=== PATIENT | female | born 2000 | race Caucasian/White ===

== ENCOUNTER 2019-05-20 09:55 | Observation (INO) | payer BC ==
[2019-05-20 10:34] VITALS: BMI 28.1
[2019-05-20 12:04] LABS: Absolute Lymphocytes (CBC) 1.7 K/uL (0.7-4.9); Basophils % 0.7 % (0-1.3); Lymphocytes % 21.5 % (15.3-44.8); MPV 8.9 fL (7.6-11.3); RBC Red Blood Cell Count 5.23 M/uL (3.86-4.86)
[2019-05-20 12:29] LABS: ALT/SGPT 37 U/L (12-78); AST/SGOT 23 U/L (15-37); Albumin 3.7 g/dL (3.4-5.0); Alkaline Phosphatase 76 U/L (45-117); BUN Blood Urea Nitrogen 9 mg/dL (7-18); Bicarbonate 26 mmol/L (21-32); Bilirubin Total 0.3 mg/dL (0.2-1.0); Glucose Level 87 mg/dL (74-106); Potassium 3.7 mmol/L (3.5-5.1); Protein, Total 8.2 g/dL (6.4-8.2); Sodium Level 140 mmol/L (136-145)
--- NOTE | 2019-05-20 13:07 | P.HP ---
Certification for Inpatient Patient admitted to: Observation With expected LOS: <2 Midnights Patient will require the following post-hospital care: None Practitioner: I am a practitioner with admitting privileges, knowledge of patient current condition, hospital course, and medical plan of care. Services: Services provided to patient in accordance with Admission requirements found in Title 42 Section 412.3 of the Code of Federal Regulations Patient History Date of Service: 05/20/19 Primary Care Provider: Zoe Redding Reason for admission: sleeping pill overdose History of Present Illness: Patient is a pleasant young woman with a pmh of depression and allergies. She has been started on fluoxetine and is on 40mg. She has been having increased depression recently. The patient took the day off. She started taking sleeping pills, otc diclocamine or unisom. She eventually took 10pill 25mg each. Within the space of an hour. She became scared and called her . Who called our office and we decided to direct admit her to the hospital and have her seen by psychiatry. The patient has a history of attempts when she was 13. She did use pills. Her mother also has a similar history. The patient denies wanting to commit suicide. She simply wanted to sleep. She states this was not an active attempt. Perhaps an unintentional overdose. Allergies Penicillins Allergy (Severe, Verified 05/20/19 10:47) Hives, SOB Home Medications: Doxylamine Succinate [Unisom Sleep Aid] 25 mg PO BEDTIME 05/20/19 Fluoxetine HCl [Prozac] 40 mg PO DAILY 05/20/19 - Past Medical/Surgical History Has patient received pneumonia vaccine in the past: Yes Diabetic: No -: depreesion -: anxiety -: mitral valve prolapse - Family History Mother History Unknown: Yes -: Heart disease, Cancer - Social History Smoking Status: Former smoker Alcohol use: No CD- Drugs: No Caffeine use: Yes Place of Residence: Home Review of Systems 10-point ROS is otherwise unremarkable General: Other (depression) Physical Examination - Vital Signs Blood Pressure: 123/84 Pulse: 78 Respirations: 11 Pulse Ox (%): 100 - Physical Exam General: Alert, In no apparent distress HEENT: Atraumatic, PERRLA, Mucous membr. moist/pink, EOMI, Sclerae nonicteric Neck: Supple, 2+ carotid pulse no bruit, No LAD, Without JVD or thyroid abnormality Respiratory: Clear to auscultation bilaterally, Normal air movement Cardiovascular: Regular rate/rhythm, Normal S1 S2 Gastrointestinal: Normal bowel sounds, No tenderness Musculoskeletal: No tenderness Integumentary: No rashes Neurological: Normal gait, Normal speech, Normal strength at 5/5 x4 extr, Normal tone, Normal affect Lymphatics: No axilla or inguinal lymphadenopathy - Studies Laboratory Data (last 24 hrs) 05/20/19 11:46: Sodium 140, Potassium 3.7, BUN 9, Creatinine 0.68, Glucose 87, Total Bilirubin 0.3, AST 23, ALT 37, Alkaline Phosphatase 76 05/20/19 11:46: WBC 7.9, Hgb 14.6, Hct 44.0, Plt Count 274 Assessment and Plan - Problems (Diagnosis) (1) Overdose Current Visit: Yes Status: Acute Plan: Patient is in the icu. Our excellent nurse has consulted poison control. As recomended will do serial ekg to monitor qt interval. Will put her on neurochecks and seizure precautions. The t1/2 is 10hrs. Will keep her 24-48 hours Qualifiers: Encounter type: initial encounter (2) Depression Current Visit: Yes Status: Chronic Plan: will continue fluoxetine 40mg. Will have her seen by Dr. Randall Lezama. He is here at this time. Have discussed her past history. Will have her follow up with him as an outpatient. Will await his input though. She may need inpt psych. However our initial conversation with Dr. Shook did not seem to lean in that direction. Qualifiers: Depression Type: major depressive disorder Discharge Plan: Home Plan to discharge in: 24 Hours - Advance Directives Does patient have a Living Will: No Does patient have a Durable POA for Healthcare: No - Code Status/Comfort Care Code Status Assessed: No Code Status: Full Code Physician Review: Patient Assessed, Agree with Above Assessment and Plan Critical Care: Yes Time Spent Managing Pts Care (In Minutes): 75
[2019-05-20] MEDS: NA CHLORIDE 0.9% 500 ML IV SCH ×2 (14:20→21:06)
[2019-05-20] MEDS: VENLAFAXINE HCL 37.5 MG TAB PO SCH (14:20)
[2019-05-20 21:28] LABS: Specific Gravity 1.015 (1.005-1.030)
[2019-05-20 21:38] LABS: Barbiturates NEGATIVE (NEGATIVE); Benzodiazepines NEGATIVE (NEGATIVE); Cocaine NEGATIVE (NEGATIVE); METHAMPHETAM NEGATIVE (NEGATIVE); Methadone NEGATIVE (NEGATIVE); Opiates NEGATIVE (NEGATIVE); Phencyclidine NEGATIVE (NEGATIVE); THC Cannibis POSITIVE (NEGATIVE)
[2019-05-21 01:50] VITALS: O2SAT 96
[2019-05-21] MEDS: NA CHLORIDE 0.9% 500 ML IV SCH (05:01)
--- NOTE | 2019-05-21 07:56 | EKG ---
Test Date: 2019-05-20 Test Time: 11:29:30 It Technician: SOLO MEASUREMENT RESULTS: Intervals: Rate: 64 TX: 136 QRSD: 92 QT: 430 QTc: 443 [place]: P: 43 TX: 136 QRS: 88 T: 60 INTERPRETIVE STATEMENTS: Normal sinus rhythm Normal ECG No previous ECG available for comparison Electronically Signed On 05-21-19 07:55:57 CDT by Parish Rodriguez
--- NOTE | 2019-05-21 08:20 | P.DS ---
Admission Date: 05/20/19 Discharge Date: 05/21/19 Primary Care Provider: Zoe Redding Disposition: ROUTINE DISCHARGE Discharge Condition: FAIR Reason for Admission: sleeping pill overdose - Problems (1) Overdose Onset Date: ~05/20/19 Current Visit: Yes Status: Acute Qualifiers: Encounter type: initial encounter (2) Depression Current Visit: Yes Status: Chronic Qualifiers: Depression Type: major depressive disorder Brief History of Present Illness: Patient is a pleasant young woman with a pmh of depression and allergies. She has been started on fluoxetine and is on 40mg. She has been having increased depression recently. The patient took the day off. She started taking sleeping pills, otc diclocamine or unisom. She eventually took 10pill 25mg each. Within the space of an hour. She became scared and called her . Who called our office and we decided to direct admit her to the hospital and have her seen by psychiatry. The patient has a history of attempts when she was 13. She did use pills. Her mother also has a similar history. The patient denies wanting to commit suicide. She simply wanted to sleep. She states this was not an active attempt. Perhaps an unintentional overdose. Hospital Course: Patient was sent to the hospital for direct admit. She was seen in the icu by Dr. Moulton. He felt she is not a suicide risk. Will discharge her home. Have discussed the use of thc. She is willing to stop. Was only using 1-2/week to help with anxiety. Would not want her to have any legal difficulty. Can help with anxiety. CBD may be a safe alternative. Will have weekly telehealth visits with Mrs. Redding her [employer]. Will have her follow up in2 weeks with Dr. Shook. Have called [facility] Where she established care last week. She is to have twice weekly councilling for the next month via telehealth. Will also stop fluoxetine and start her on Effexor 37.5mg po qday. Dr. Shook Will be managing her mental health medications, adjusting the dosage and such. Vital Signs/Physical Exam: Temp Pulse Resp BP Pulse Ox 97.1 F 62 16 128/63 100 05/21/19 04:00 05/21/19 04:00 05/21/19 04:00 05/21/19 04:00 05/21/19 04:00 General: Alert, In no apparent distress HEENT: Atraumatic, PERRLA, EOMI Neck: Supple, JVD not distended Respiratory: Clear to auscultation bilaterally, Normal air movement Cardiovascular: Regular rate/rhythm, Normal S1 S2 Gastrointestinal: Normal bowel sounds, No tenderness Musculoskeletal: No tenderness Integumentary: No rashes Neurological: Normal speech, Normal tone, Normal affect Lymphatics: No axilla or inguinal lymphadenopathy Laboratory Data at Discharge: WBC 7.9 K/uL (4.3-10.9) 05/20/19 11:46 Hgb 14.6 g/dL (12.0-15.0) 05/20/19 11:46 Hct 44.0 % (36.0-45.0) 05/20/19 11:46 Plt Count 274 K/uL (152-406) 05/20/19 11:46 Sodium 140 mmol/L (136-145) 05/20/19 11:46 Potassium 3.7 mmol/L (3.5-5.1) 05/20/19 11:46 BUN 9 mg/dL (7-18) 05/20/19 11:46 Creatinine 0.68 mg/dL (0.55-1.3) 05/20/19 11:46 Glucose 87 mg/dL (74-106) 05/20/19 11:46 Total Bilirubin 0.3 mg/dL (0.2-1.0) 05/20/19 11:46 AST 23 U/L (15-37) 05/20/19 11:46 ALT 37 U/L (12-78) 05/20/19 11:46 Alkaline Phosphatase 76 U/L (45-117) 05/20/19 11:46 Home Medications: Venlafaxine HCl [Effexor*] 37.5 mg PO DAILY 90 Days #90 tab 05/21/19 New Medications: Venlafaxine HCl [Effexor*] 37.5 mg PO DAILY 90 Days #90 tab Followup: Darien Grider MD [OUTSIDE PHYSICIAN] - Zoe Redding FNP BC [ALLIED HEALTH PROFESSIONAL] - 1 Week (telemedicine) Time spent managing pt's care (in minutes): 30
[2019-05-21] MEDS ORDERED: FLUOXETINE 20 MG CAP PO SCH (09:00)
[2019-05-21 09:01] VITALS: BP 139/68; TEMP 97.6
[2019-05-21] MEDS: VENLAFAXINE HCL 37.5 MG TAB PO SCH (09:38)
--- NOTE | 2019-05-21 12:50 | EKG ---
Test Date: 2019-05-21 Test Time: 05:13:20 Table Games Dealer: RT MEASUREMENT RESULTS: Intervals: Rate: 61 MA: 140 QRSD: 92 QT: 430 QTc: 432 [place]: P: 30 MA: 140 QRS: 73 T: 40 INTERPRETIVE STATEMENTS: Normal sinus rhythm Normal ECG Compared to ECG 05/21/2019 00:57:08 No significant changes Electronically Signed On 05-21-19 12:49:38 CDT by Parish Rodriguez
--- NOTE | 2019-05-21 12:51 | EKG ---
Test Date: 2019-05-20 Test Time: 16:13:52 Radar Engineer: ORLIN MEASUREMENT RESULTS: Intervals: Rate: 62 WI: 118 QRSD: 78 QT: 422 QTc: 428 [place]: P: 42 WI: 118 QRS: 68 T: 38 INTERPRETIVE STATEMENTS: Normal sinus rhythm Normal ECG Compared to ECG 05/20/2019 11:29:30 No significant changes Electronically Signed On 05-21-19 12:49:50 CDT by Parish Rodriguez
--- NOTE | 2019-05-21 12:51 | EKG ---
Test Date: 2019-05-21 Test Time: 00:57:08 Glaze Sprayer: RT MEASUREMENT RESULTS: Intervals: Rate: 61 LA: 152 QRSD: 88 QT: 442 QTc: 444 [place]: P: 31 LA: 152 QRS: 75 T: 41 INTERPRETIVE STATEMENTS: Normal sinus rhythm Normal ECG Compared to ECG 05/20/2019 20:58:37 No significant changes Electronically Signed On 05-21-19 12:49:46 CDT by Parish Rodriguez
--- NOTE | 2019-05-21 12:51 | EKG ---
Test Date: 2019-05-20 Test Time: 20:58:37 Tube Test Technician: RT MEASUREMENT RESULTS: Intervals: Rate: 61 [place]: 146 QRSD: 86 QT: 436 QTc: 438 [place]: P: 30 CA: 146 QRS: 71 T: 43 INTERPRETIVE STATEMENTS: Normal sinus rhythm Normal ECG Compared to ECG 05/20/2019 16:13:52 No significant changes Electronically Signed On 05-21-19 12:49:48 CDT by Parish Rodriguez
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
== END 2019-05-21 09:51 | disposition home or self-care (01) ==
LOC: 3RD-ICU 09:55 → 2ND 17:20
PROVIDERS: ADMIT Internal Medicine; ATTEND Internal Medicine
DX: T45.0X1A Poisoning by antiallergic and antiemetic drugs, accidental (unintentional), initial encounter (principal); Y92.009 Unspecified place in unspecified non-institutional (private) residence as the place of occurrence of the external cause; F33.2 Major depressive disorder, recurrent severe without psychotic features; F41.9 Anxiety disorder, unspecified
CPT/HCPCS: 93005 ×5; 85025; 36415; 80320; 80329 ×2; 81025; 80307 ×8; 84443; 80053; J7040 ×3; G0379; G0378 ×3

== ENCOUNTER 2019-07-07 21:27 | Inpatient (IN) | payer BC ==
[2019-07-07] MEDS ORDERED: activated charcoaL 25 GM/120 ML TUBE ONE (21:59)
[2019-07-07] MEDS ORDERED: ACT CHARCOAL/SORB 50 GM/240ML ONE (22:01)
[2019-07-07] MEDS ORDERED: NA CHLORIDE 0.9% 1,000 ML ONE (22:05)
--- NOTE | 2019-07-07 22:18 | EDPHYS ---
Physician Documentation [facility] Name: Syed Garcia Age: 19 yrs Sex: Female : 2000 Arrival Date: 07/07/2019 Time: 21:28 Bed 15 Private MD: ED Physician Bob Zuniga HPI: 07/06 22:02 This 19 yrs old Female presents to ER via Ambulatory with complaints of pkl Overdose. 22:02 The patient presents to the emergency department after a known overdose. Patient said pkl she was upset and took 10 tab. of Venlafaxin 37.5 mg about 1 hour ago. Historical: - Allergies: 21:51 PENICILLINS; ll1 - PMHx: 21:51 Depression; ll1 - PSHx: 21:51 None; ll1 - Social history:: Smoking status: Patient reports the use of cigarette tobacco products, smokes one-half pack cigarettes per day, Patient/guardian denies using alcohol, street drugs. ROS: 22:02 Eyes: Negative for injury, pain, redness, and discharge, ENT: Negative for injury, pkl pain, and discharge, Neck: Negative for injury, pain, and swelling, Cardiovascular: Negative for chest pain, palpitations, and edema, Respiratory: Negative for shortness of breath, cough, wheezing, and pleuritic chest pain, Abdomen/GI: Negative for abdominal pain, nausea, vomiting, diarrhea, and constipation, Back: Negative for injury and pain, : Negative for injury, bleeding, discharge, and swelling, MS/Extremity: Negative for injury and deformity, Skin: Negative for injury, rash, and discoloration, Neuro: Negative for headache, weakness, numbness, tingling, and seizure. 22:02 Psych: Positive for depression, Patient said she is not suicidal. Exam: 22:02 Head/Face: Normocephalic, atraumatic. Eyes: Pupils equal round and reactive to light, pkl extra-ocular motions intact. Lids and lashes normal. Conjunctiva and sclera are non-icteric and not injected. Cornea within normal limits. Periorbital areas with no swelling, redness, or edema. ENT: Nares patent. No nasal discharge, no septal abnormalities noted. Tympanic membranes are normal and external auditory canals are clear. Oropharynx with no redness, swelling, or masses, exudates, or evidence of obstruction, uvula midline. Mucous membranes moist. Neck: Trachea midline, no thyromegaly or masses palpated, and no cervical lymphadenopathy. Supple, full range of motion without nuchal rigidity, or vertebral point tenderness. No Meningismus. Chest/axilla: Normal chest wall appearance and motion. Nontender with no deformity. No lesions are appreciated. Cardiovascular: Regular rate and rhythm with a normal S1 and S2. No gallops, murmurs, or rubs. Normal PMI, no JVD. No pulse deficits. Respiratory: Lungs have equal breath sounds bilaterally, clear to auscultation and percussion. No rales, rhonchi or wheezes noted. No increased work of breathing, no retractions or nasal flaring. Abdomen/GI: Soft, non-tender, with normal bowel sounds. No distension or tympany. No guarding or rebound. No evidence of tenderness throughout. Back: No spinal tenderness. No costovertebral tenderness. Full range of motion. Skin: Warm, dry with normal turgor. Normal color with no rashes, no lesions, and no evidence of cellulitis. MS/ Extremity: Pulses equal, no cyanosis. Neurovascular intact. Full, normal range of motion. Neuro: Awake and alert, GCS 15, oriented to person, place, time, and situation. Cranial nerves II-XII grossly intact. Motor strength 5/5 in all extremities. Sensory grossly intact. Cerebellar exam normal. Normal gait. 22:02 Psych: Behavior/mood is pleasant, Affect is calm, patient said she is not suicidal. Vital Signs: 21:46 BP 125 / 94; Pulse 92; Resp 17; Temp 98.6; Pulse Ox 100% ; Pain 0/10; ll1 21:49 Weight 70.76 kg (R); lp1 22:45 BP 123 / 98; Pulse 68; Resp 19; Pulse Ox 100% on R/A; jb4 07/07 07:36 BP 117 / 84; Pulse 62; Resp 16; Temp 97.6(O); Pulse Ox 98% on R/A; mh5 09:45 BP 129 / 65; Pulse 100; Resp 18; Pulse Ox 100% on R/A; kj1 09:45 BP 123 / 83; Pulse 60; Resp 16; Pulse Ox 99% on R/A; kj1 MDM: 07/06 21:46 Patient medically screened. pkl 22:15 Data reviewed: vital signs, nurses notes, lab test result(s), EKG, radiologic studies, pkl plain films. 07/06 21:42 Order name: Acetaminophen lp1 07/06 21:42 Order name: Basic Metabolic Panel lp1 07/06 21:42 Order name: CBC with Diff lp1 07/06 21:42 Order name: ETOH Level lp1 07/06 21:42 Order name: Hepatic Function lp1 07/06 21:42 Order name: PT-INR lp1 07/06 21:42 Order name: Ptt, Activated lp1 07/06 21:42 Order name: Salicylate lp1 07/06 21:42 Order name: Urine Drug Screen lp 07/06 22:26 Order name: Basic Metabolic Panel EDME 07/06 22:26 Order name: Basic Metabolic Panel EDME 07/06 22:26 Order name: Basic Metabolic Panel EDME 07/06 22:26 Order name: CBC with Automated Diff EDMS 07/06 22:26 Order name: CBC with Automated Diff EDMS 07/06 21:42 Order name: EKG; Complete Time: 21:43 1 07/06 22:24 Order name: CONS Physician Consult EDME 07/06 22:26 Order name: CBC with Automated Diff EDMS 07/06 22:26 Order name: CBC with Automated Diff EDMS 07/06 22:27 Order name: Magnesium EDME 07/06 22:40 Order name: Social Service Consult EDME 07/06 23:57 Order name: CBC Smear Scan EDME 07/07 00:12 Order name: Urine --Ancillary EDME 07/07 00:12 Order name: Urine Dipstick-Ancillary EDME 07/07 07:49 Order name: Diet Finger Food; Complete Time: 07:50 5 07/07 08:47 Order name: Glucose, Ancillary Testing EDME 07/06 21:42 Order name: EKG - Nurse/Tech; Complete Time: 22:41 lp1 07/06 21:42 Order name: IV Saline Lock; Complete Time: 22:41 1 07/06 21:42 Order name: Labs collected and sent; Complete Time: 22:41 1 07/06 21:42 Order name: Urine Dipstick-Ancillary (obtain specimen); Complete Time: 00:46 lp1 Administered Medications: 21:59 CANCELLED (Duplicate Order): NS 0.9% 1000 ml IV at 1 bolus Per protocol; 1000 mL bolus rv 22:00 Drug: Activated Charcoal Suspension (50 g/240 mL) 1 g/kg Route: PO; lp1 07/07 03:50 Follow up: Response: No adverse reaction mg2 07/06 22:10 Drug: NS 0.9% 1000 ml Route: IV; Rate: 1 bolus; Site: left antecubital; jb4 07/07 03:51 Follow up: Response: No adverse reaction; IV Status: Completed infusion; IV Intake: mg2 1000ml Disposition: 07/07/19 22:17 Hospitalization ordered by Matthew Alonso for Inpatient Admission. Preliminary diagnosis is Drug overdose. Depression. - Bed requested for [facility] ER HOLD. - Status is Inpatient Admission. bp - Condition is Stable. - Problem is new. - Symptoms are unchanged. Signatures: Dispatcher [employer] [facility] Bob Zuniga MD MD pkl Pena, Laura, RN RN lp1 Lucrecia Francois RN RN cg Luigi Daniels, RN ADY jb4 Lui Orlando, RN RN bp Benigno Rico RN RN rv Su Becerril RN RN ll1 Jalen Mishra RN mg2 Corrections: (The following items were deleted from the chart) 07/06 21:59 21:59 NS 0.9% 1000 ml IV at 1 bolus Per protocol; 1000 mL bolus ordered. rv rv 23:17 22:17 Hospitalization Ordered by Matthew Alonso MD for Inpatient Admission. Preliminary cg diagnosis is Drug overdose. Depression. Bed requested for Intensive Care Unit. Status is Inpatient Admission. Condition is Stable. Problem is new. Symptoms are unchanged. pkl 07/07 04:10 07/06 23:58 URINE DIPSTICK--ANCILLARY+U.LAB.BRZ ordered. [facility] 07/07 04:10 07/06 23:58 URINE --ANCILLARY+UC.LAB.BRZ ordered. [facility] 07/07 11:28 07/06 23:17 07/07/2019 22:17 Hospitalization Ordered by Matthew Alonso MD for Inpatient bp Admission. Preliminary diagnosis is Drug overdose. Depression. Bed requested for [facility] ER HOLD. Status is Inpatient Admission. Condition is Stable. Problem is new. Symptoms are unchanged. cg
--- NOTE | 2019-07-07 22:18 | ER ---
Nurse's Notes [facility] Name: Syed Garcia Age: 19 yrs Sex: Female : 2000 Arrival Date: 07/07/2019 Time: 21:28 Bed 15 Private MD: Diagnosis: Drug overdose. Depression Presentation: 07/06 21:38 Chief complaint: Patient states: Took 10 tabs of venlafaxin 37.5mg at 2100 tonight ll1 after getting upset with her soon to be ex-. States she immediately regretted taking the pills, and asked her ex to bring her in for eval. Last SI attempt 1 month ago she states. Coronavirus screen: Proceed with normal triage. Patient denies a cough. Patient denies shortness of breath or difficulty breathing. Patient denies measured and/or subjective temperature greater than 100.4F prior to today's visit. Patient denies travel on a cruise ship or to a country the [facility] currently lists as an affected area. Patient denies contact with known and/or suspected case of COVID-19. 21:46 Ebola Screen: Patient denies exposure to infectious person. Patient denies travel to an [facility] Ebola-affected area in the 21 days before illness onset. Initial Sepsis Screen: Does the patient meet any 2 criteria? HR > 90 bpm. No. Patient's initial sepsis screen is negative. Risk Assessment: Do you want to hurt yourself or someone else? Patient reports desire/thoughts of hurting themselves or someone else. Provider notified. Other: states she was upset. Onset of symptoms was July 07, 2019. 21:46 Method Of Arrival: Ambulatory ll1 21:46 Acuity: SHEA 2 ll1 Historical: - Allergies: 21:51 PENICILLINS; ll1 - PMHx: 21:51 Depression; ll1 - PSHx: 21:51 None; ll1 - Social history:: Smoking status: Patient reports the use of cigarette tobacco products, smokes one-half pack cigarettes per day, Patient/guardian denies using alcohol, street drugs. Screenin:35 Abuse screen: Denies threats or abuse. Nutritional screening: No deficits noted. jb4 Tuberculosis screening: No symptoms or risk factors identified. Fall Risk None identified. Assessment: 21:35 General: Appears in no apparent distress. 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 States " After the argument I decided I can't stay in this house with him anymore so I took the pills. I immediately regretted it and asked him to bring me here.". Pain: Denies pain. Neuro: Level of Consciousness is awake, alert, obeys commands, Oriented to person, place, time, situation. Cardiovascular: Patient's skin is warm and dry. Respiratory: Airway is patent Respiratory effort is even, unlabored, Respiratory pattern is regular, symmetrical. GI: No signs and/or symptoms were reported involving the gastrointestinal system. : No signs and/or symptoms were reported regarding the genitourinary system. EENT: No signs and/or symptoms were reported regarding the EENT system. Derm: Skin is intact, Skin is pink, warm \\T\\ dry. Musculoskeletal: Circulation, motion, and sensation intact. Range of motion: intact in all extremities. 21:43 Reassessment: Spoke with Stephanie at [facility] in [place] for patient that lp1 states taking Venlafaxine 37.5 mg x10; Recommended to watch for RN CARDIAC REHAB depression, respiratory depression, prolonged QRS or QT intervals; If QRS is greater than 100, suggested to administer 1-2 amps of Sodium Bicarb IV, If QTC is greater than 470, suggested 1-2 g of Magnesium IV, and repeat EKG in 1 hour; recommended to observe patient for seizures, tachycardia, tremors; If immediate release, observe patient for 6 hours or until asymptomatic; If extended release, observe patient for 11-18 hours or until asymptomatic; Case #: [id number]. 22:30 Reassessment: Patient appears in no apparent distress at this time. Patient and/or jb4 family updated on plan of care and expected duration. Pain level reassessed. Patient is alert, oriented x 3, equal unlabored respirations, skin warm/dry/pink. 23:00 Reassessment: Patient appears in no apparent distress at this time. Patient and/or jb4 family updated on plan of care and expected duration. Pain level reassessed. Patient is alert, oriented x 3, equal unlabored respirations, skin warm/dry/pink. PT admitted to ER hold. 07/07 11:26 Reassessment: PT D/C HOME WITH FAMILY, DX WITH INTENTIONAL POISONING. bp Overdose: 07/06 21:35 Patient took Venlafaxin 375mg. Overdose occurred 30 minutes to 1 hour ago. jb4 Vital Signs: 21:46 BP 125 / 94; Pulse 92; Resp 17; Temp 98.6; Pulse Ox 100% ; Pain 0/10; ll1 21:49 Weight 70.76 kg (R); lp1 22:45 BP 123 / 98; Pulse 68; Resp 19; Pulse Ox 100% on R/A; jb4 07/07 07:36 BP 117 / 84; Pulse 62; Resp 16; Temp 97.6(O); Pulse Ox 98% on R/A; mh5 09:45 BP 129 / 65; Pulse 100; Resp 18; Pulse Ox 100% on R/A; kj1 09:45 BP 123 / 83; Pulse 60; Resp 16; Pulse Ox 99% on R/A; kj1 ED Course: 07/06 21:28 Patient arrived in ED. cl3 21:35 Patient has correct armband on for positive identification. Placed in gown. Bed in low jb4 position. Side rails up X 1. Valuables inventory done. Locked in safe. See valuables checklist. monitor car operator on. Pulse ox on. NIBP on. 21:46 Bob Zuniga MD is Attending Physician. pkl 21:49 Triage completed. ll1 21:51 Arm band placed on Patient placed in an exam room, on a stretcher, on monitor car operator, ll1 on pulse oximetry. 22:03 Luigi Daniels RN is Primary Nurse. jb4 22:10 Initial lab(s) drawn, by ut, sent to lab. Inserted saline lock: 22 gauge in left jb4 antecubital area, using aseptic technique. Blood collected. 22:16 Matthew Alonso MD is Hospitalizing Provider. pkl 23:00 No provider procedures requiring assistance completed. Patient admitted, IV remains in jb4 place. 07/07 07:04 Primary Nurse role handed off by Luigi Daniels, RN bp 07:04 Lui Orlando, ADY is Primary Nurse. bp 07:38 Warm blanket given. mh5 Administered Medications: 07/06 21:59 CANCELLED (Duplicate Order): NS 0.9% 1000 ml IV at 1 bolus Per protocol; 1000 mL bolus rv 22:00 Drug: Activated Charcoal Suspension (50 g/240 mL) 1 g/kg Route: PO; lp1 07/07 03:50 Follow up: Response: No adverse reaction mg2 07/06 22:10 Drug: NS 0.9% 1000 ml Route: IV; Rate: 1 bolus; Site: left antecubital; jb4 07/07 03:51 Follow up: Response: No adverse reaction; IV Status: Completed infusion; IV Intake: mg2 1000ml Intake: 03:51 IV: 1000ml; Total: 1000ml. mg2 Outcome: 07/06 22:17 Decision to Hospitalize by Provider. pkl 23:00 Admitted to ER Hold. Please see [facility] for further documentation. jb4 23:00 Condition: stable 23:00 Discharge instructions given to patient, Instructed on the need for admit. 07/07 11:27 Discharged to home ambulatory, with family. bp Condition: stable Discharge instructions given to patient, Instructed on discharge instructions, follow up and referral plans. Demonstrated understanding of instructions, follow-up care. 11:28 Patient left the ED. bp Signatures: Bob Zuniga MD MD pkl Taylor Stoner, RN RN lp1 Luigi Daniels RN RN jb4 Nighat Walker 5 Lui Orlando RN RN bp Jalen Mishra RN RN mg2 Zaida Alarcon1 Leo Becerril cl3 Su Becerril RN RN ll1 Benigno Rico RN rv Corrections: (The following items were deleted from the chart) 07/06 22:03 21:43 Reassessment: Spoke with Stephanie at [facility] in [place] for patient lp1 that states taking Venlafaxine 37.5 mg x10; Recommended to watch for RN CARDIAC REHAB depression, respiratory depression, prolonged QRS or QT intervals; If QRS is greater than lp1
[2019-07-07 22:26] LABS: Absolute Lymphocytes (CBC) 3.3 K/uL (0.7-4.9); Basophils % 0.8 % (0-1.3); Hematocrit 45.2 % (36.0-45.0); Lymphocytes % 26.1 % (15.3-44.8); MPV 10.1 fL (7.6-11.3); RBC Red Blood Cell Count 5.28 M/uL (3.86-4.86)
[2019-07-07 22:29] LABS: Protime INR 1.02
--- NOTE | 2019-07-07 22:35 | P.HP ---
Certification for Inpatient Patient admitted to: Inpatient With expected LOS: >2 Midnights Patient will require the following post-hospital care: Other Practitioner: I am a practitioner with admitting privileges, knowledge of patient current condition, hospital course, and medical plan of care. Services: Services provided to patient in accordance with Admission requirements found in Title 42 Section 412.3 of the Code of Federal Regulations Patient History Date of Service: 07/07/19 Primary Care Provider: Zoe Redding NP Reason for admission: Intentional overdose of antidepressants History of Present Illness: Patient of my practice. Who see's Mr Redding. She and her have recently decided to divorce. They had an argument tonight. The patient took ten of her venalafxine tablets(37.5mg for a total of 375mg). her called our office service at 8:57pm. Discussed her with the . Then called Dr. Sandoval her regular psychiatrist. The patient last attempt at suicide was on 05/20/19. So about 1 and 1/2 months ago. The fear is this will escalate in her current environment. I called back the and asked her to bring her to the ER. In the ER the patient was awake and answering questions appropriately. No noted neurological deficit. The patient stated she did regret it after she had taken the pills. She then immediately told her . She is worried about have to go to a psychiatric facility. Have informed her that this is not the worst thing. The worst is if she completes. Allergies Penicillins Allergy (Severe, Verified 05/20/19 10:47) Hives, SOB Home Medications: Venlafaxine HCl [Effexor*] 37.5 mg PO DAILY 90 Days #90 tab 05/21/19 - Past Medical/Surgical History Diabetic: No -: depreesion -: anxiety -: mitral valve prolapse - Family History Mother -: Heart disease, Cancer - Social History Alcohol use: No CD- Drugs: No Caffeine use: Yes Review of Systems 10-point ROS is otherwise unremarkable General: As per HPI Physical Examination - Physical Exam General: Alert, In no apparent distress HEENT: Atraumatic, PERRLA, Mucous membr. moist/pink, EOMI, Sclerae nonicteric Neck: Supple, 2+ carotid pulse no bruit, No LAD, Without JVD or thyroid abnormality Respiratory: Clear to auscultation bilaterally, Normal air movement Cardiovascular: Regular rate/rhythm, Normal S1 S2 Gastrointestinal: Normal bowel sounds, No tenderness Musculoskeletal: No tenderness Integumentary: No rashes Neurological: Normal gait, Normal speech, Normal strength at 5/5 x4 extr, Normal tone, Normal affect Lymphatics: No axilla or inguinal lymphadenopathy Assessment and Plan - Problems (Diagnosis) (1) Overdose Onset Date: ~05/20/19 Current Visit: No Status: Acute Plan: admit the patient to the icu. Will have Dr. Sandoval see her in the morning. Will have to be a bit more agressive today as the patient is now on her second attempt. Qualifiers: Encounter type: initial encounter Injury intent: intentional self-harm Qualified Code(s): T50.902A - Poisoning by unspecified drugs, medicaments and biological substances, intentional self-harm, initial encounter (2) Depression Current Visit: No Status: Chronic Plan: She has intermediate designer depression. Divorce has exacerbated this. Will need intermediate designer care. Qualifiers: Depression Type: major depressive disorder Discharge Plan: Psychiatry Plan to discharge in: 24 Hours - Advance Directives Does patient have a Living Will: No Does patient have a Durable POA for Healthcare: No - Code Status/Comfort Care Code Status Assessed: Yes Code Status: Full Code Physician Review: Patient Assessed, Agree with Above Assessment and Plan Critical Care: No Time Spent Managing Pts Care (In Minutes): 75
[2019-07-07 22:43] LABS: ALT/SGPT 27 U/L (12-78); Albumin 4.2 g/dL (3.4-5.0); Alkaline Phosphatase 82 U/L (45-117); BUN Blood Urea Nitrogen 14 mg/dL (7-18); Bicarbonate 23 mmol/L (21-32); Bilirubin Direct < 0.1 mg/dL (0-0.2); Bilirubin Total 0.3 mg/dL (0.2-1.0); Glucose Level 87 mg/dL (74-106); Protein, Total 8.6 g/dL (6.4-8.2); Sodium Level 139 mmol/L (136-145)
[2019-07-07 22:44] LABS: AST/SGOT 23 U/L (15-37); Potassium 3.9 mmol/L (3.5-5.1)
[2019-07-07] MEDS ORDERED: NA CHLORIDE 0.9% 1,000 ML IV SCH (23:00)
[2019-07-07 23:57] LABS: Blood Morphology Comment NOT SEEN (NOT SEEN); Platelet Estimate ADEQ; Urine White Blood Cell Casts OK
[2019-07-08 00:12] LABS: Urine Blood TRACE (NEG); Urine Glucose NEGATIVE (NEG); Urine Protein NEGATIVE (NEG); Urine Specific Gravity 1.025 (1.005-1.030)
[2019-07-08 00:39] LABS: Barbiturates NEGATIVE (NEGATIVE); Benzodiazepines NEGATIVE (NEGATIVE); Cocaine NEGATIVE (NEGATIVE); METHAMPHETAM NEGATIVE (NEGATIVE); Methadone NEGATIVE (NEGATIVE); Opiates NEGATIVE (NEGATIVE); Phencyclidine NEGATIVE (NEGATIVE); THC Cannibis POSITIVE (NEGATIVE)
[2019-07-08] MEDS ORDERED: NA CHLORIDE 0.9% 1,000 ML ONE (00:53)
[2019-07-08 02:14] VITALS: BMI 26.7
[2019-07-08 05:10] LABS: Absolute Lymphocytes (CBC) 2.7 K/uL (0.7-4.9); Basophils % 0.9 % (0-1.3); Hematocrit 40.8 % (36.0-45.0); Lymphocytes % 30.3 % (15.3-44.8); MPV 9.7 fL (7.6-11.3); RBC Red Blood Cell Count 4.79 M/uL (3.86-4.86)
[2019-07-08] MEDS ORDERED: PANTOPRAZOLE 40MG TABLET PO ONE (05:20)
[2019-07-08 05:22] LABS: BUN Blood Urea Nitrogen 8 mg/dL (7-18); Bicarbonate 22 mmol/L (21-32); Glucose Level 109 mg/dL (74-106); Magnesium 2.5 mg/dL (1.8-2.4); Potassium 3.6 mmol/L (3.5-5.1); Sodium Level 141 mmol/L (136-145)
[2019-07-08] MEDS ORDERED: PANTOPRAZOLE 40MG TABLET PO SCH (06:30)
--- NOTE | 2019-07-08 08:58 | P.PN ---
Subjective Date of Service: 07/08/19 Primary Care Provider: Zoe Redding NP Chief Complaint: Intentional overdose of antidepressants Subjective: No new changes Review of Systems 10-point ROS is otherwise unremarkable Physical Examination - Vital Signs Temperature: 98.1 F Blood Pressure: 125/79 Pulse: 79 Respirations: 26 Pulse Ox (%): 99 - Physical Exam General: Alert, In no apparent distress HEENT: Atraumatic, PERRLA, EOMI Neck: Supple, JVD not distended Respiratory: Clear to auscultation bilaterally, Normal air movement Cardiovascular: Regular rate/rhythm, Normal S1 S2 Gastrointestinal: Normal bowel sounds, No tenderness Musculoskeletal: No tenderness Integumentary: No rashes Neurological: Normal speech, Normal tone, Normal affect Lymphatics: No axilla or inguinal lymphadenopathy - Studies Laboratory Data (last 24 hrs) 07/07/19 22:10: PT 12.0, INR 1.02, APTT 31.0 07/07/19 22:00: WBC 12.5 H, Hgb 15.0, Hct 45.2 H, Plt Count 206 07/07/19 22:00: Sodium 139, Potassium 3.9, BUN 14, Creatinine 0.77, Glucose 87, Total Bilirubin 0.3, AST 23, ALT 27, Alkaline Phosphatase 82 Assessment & Plan - Problems (Diagnosis) (1) Overdose Onset Date: ~05/20/19 Current Visit: No Status: Resolved Plan: admit the patient to the icu. Will have Dr. Sandoval see her in the morning. Will have to be a bit more agressive today as the patient is now on her second attempt. 07/07 Patient is doing well. Medically speaking she is cleared for placement. Have discussed with Dr. Duke. Most likely she needs placement in a in patient facility Qualifiers: Encounter type: initial encounter Injury intent: intentional self-harm Qualified Code(s): T50.902A - Poisoning by unspecified drugs, medicaments and biological substances, intentional self-harm, initial encounter (2) Depression Current Visit: No Status: Chronic Plan: She has detention depression. Divorce has exacerbated this. 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 07/07 Spoke with the last night The patient asked him not to bring her to the hospital. The first question she asked me was if she had to go to an in patient psych facility. This worries me she is not taking this seriously and she is not aware how dangerous she is to herself. She has stated she was not trying to hurt herself. she took extra medications to "feel better" Which may be true for taking 1 extra pill. The patient took 10. This was intentional. Qualifiers: Depression Type: major depressive disorder Major depression recurrence: recurrent Major depression episode severity: severe Psychotic features: without psychotic features (3) Non compliance w medication regimen Current Visit: Yes Status: Chronic Plan: Patient did not follow up with psychiatry. Will need to check with the [facility]. Will see if she was compliant with therapy. (4) Tetrahydrocannabinol (THC) use disorder, mild, abuse Current Visit: Yes Status: Chronic Plan: Patient has tested positive on both admissions. Discharge Plan: Psychiatry Plan to discharge in: 24 Hours - Code Status/Comfort Care Code Status Assessed: No Code Status: Full Code Physician Review: Patient Assessed, Agree with Above Assessment and Plan Critical Care: No Time Spent Managing Pts Care (In Minutes): 30
[2019-07-08] MEDS ORDERED: POTASSIUM CL SA 10 MEQ TAB PO ONE ×2 (09:00→09:47)
[2019-07-08 11:09] VITALS: BP 117/75; TEMP 98.9
--- NOTE | 2019-07-08 11:11 | P.DS ---
Admission Date: 07/07/19 Discharge Date: 07/08/19 Primary Care Provider: Zoe Redding GRID TRIMMER Disposition: ROUTINE DISCHARGE Discharge Condition: FAIR Reason for Admission: Intentional overdose of antidepressants - Problems (1) Overdose Onset Date: ~05/20/19 Current Visit: No Status: Resolved Qualifiers: Encounter type: initial encounter Injury intent: intentional self-harm Qualified Code(s): T50.902A - Poisoning by unspecified drugs, medicaments and biological substances, intentional self-harm, initial encounter (2) Depression Current Visit: No Status: Chronic Qualifiers: Depression Type: major depressive disorder Major depression recurrence: recurrent Major depression episode severity: severe Psychotic features: without psychotic features (3) Non compliance w medication regimen Current Visit: Yes Status: Chronic (4) Tetrahydrocannabinol (THC) use disorder, mild, abuse Current Visit: Yes Status: Chronic Brief History of Present Illness: Patient of my practice. Who see's Mr Redding. She and her have recently decided to divorce. They had an argument tonight. The patient took ten of her venalafxine tablets(37.5mg for a total of 375mg). her called our office service at 8:57pm. Discussed her with the . Then called Dr. Sandoval her regular psychiatrist. The patient last attempt at suicide was on 05/20/19. So about 1 and 1/2 months ago. The fear is this will escalate in her current environment. I called back the and asked her to bring her to the ER. In the ER the patient was awake and answering questions appropriately. No noted neurological deficit. The patient stated she did regret it after she had taken the pills. She then immediately told her . She is worried about have to go to a psychiatric facility. Have informed her that this is not the worst thing. The worst is if she completes. Hospital Course: Patient was admitted after taking 10 venalfaxine. She was seen Dr. Gutierrez. The patient is to be discharged home with councilling twice a week. She should come to our office twice weekly and get only a 2 week supply of medications. Have discussed at length with Dr. Gutierrez. He feels that in patient is not warranted. The patient is not trying to hurt herself. She responds to stress by taking a handful of pills. Which is dangerous. The plain is for counciling to teach more appropriate stress management techniques. Have discussed this with Mr Jovita Alberto her councillor at [facility]. Have made her an appointment at my office on Sunday. She has an appointment on with [facility]. She has in the past stated she is uninsured and could not g o to councilling so frequently. The center got her on a reji and waved the copay. However she was not compliant. Have had a patrice discussion with the patient about her non compliance. Nurse Tomasa Campos present as a chaparone. Hopefully we can improve compliance with the patient. Have spent a total of 60 min on her discharge. Vital Signs/Physical Exam: Temp Pulse Resp BP Pulse Ox 98.1 F 58 17 123/83 100 07/08/19 09:04 07/08/19 10:00 07/08/19 10:00 07/08/19 10:00 07/08/19 10:00 General: Alert, In no apparent distress HEENT: Atraumatic, PERRLA, EOMI Neck: Supple, JVD not distended Respiratory: Clear to auscultation bilaterally, Normal air movement Cardiovascular: Regular rate/rhythm, Normal S1 S2 Gastrointestinal: Normal bowel sounds, No tenderness Musculoskeletal: No tenderness Integumentary: No rashes Neurological: Normal speech, Normal tone, Normal affect Lymphatics: No axilla or inguinal lymphadenopathy Laboratory Data at Discharge: WBC 8.8 K/uL (4.3-10.9) D 07/08/19 04:45 Hgb 13.6 g/dL (12.0-15.0) 07/08/19 04:45 Hct 40.8 % (36.0-45.0) 07/08/19 04:45 Plt Count 248 K/uL (152-406) D 07/08/19 04:45 PT 12.0 SECONDS (9.5-12.5) 07/07/19 22:10 INR 1.02 07/07/19 22:10 APTT 31.0 SECONDS (24.3-36.9) 07/07/19 22:10 Sodium 141 mmol/L (136-145) 07/08/19 04:45 Potassium 3.6 mmol/L (3.5-5.1) 07/08/19 04:45 BUN 8 mg/dL (7-18) 07/08/19 04:45 Creatinine 0.59 mg/dL (0.55-1.3) 07/08/19 04:45 Glucose 109 mg/dL (74-106) H 07/08/19 04:45 Magnesium 2.5 mg/dL (1.8-2.4) H 07/08/19 04:45 Total Bilirubin 0.3 mg/dL (0.2-1.0) 07/07/19 22:00 AST 23 U/L (15-37) 07/07/19 22:00 ALT 27 U/L (12-78) 07/07/19 22:00 Alkaline Phosphatase 82 U/L (45-117) 07/07/19 22:00 Home Medications: Venlafaxine HCl [Effexor*] 37.5 mg PO BID 07/08/19 Patient Discharge Instructions: Patient should follow up twice weekly with [facility] councelling centers. [phone] Followup: Zoe Redding FNP BC [ALLIED HEALTH PROFESSIONAL] - 07/11/19 10:00 am Time spent managing pt's care (in minutes): 60
[2019-07-08 11:48] VITALS: O2SAT 99
[2019-07-08] MEDS ORDERED: ENOXAPARIN 40 MG/0.4 ML SQ SCH (17:00)
--- NOTE | 2019-07-08 19:27 | EKG ---
Test Date: 2019-07-07 Test Time: 22:16:51 Engineering Executive: ELIZA MEASUREMENT RESULTS: Intervals: Rate: 69 LA: 130 QRSD: 86 QT: 378 QTc: 405 [place]: P: 15 LA: 130 QRS: 70 T: 28 INTERPRETIVE STATEMENTS: Normal sinus rhythm Normal ECG Compared to ECG 05/21/2019 05:13:20 No significant changes Electronically Signed On 07-08-19 19:24:06 CDT by Parish Rodriguez
--- NOTE | 2019-07-09 14:22 | CON ---
Patient has been seen in the ER. History Of Present Illness: Patient was admitted through the ER on account of intentional overdose on 10 tablets of venlafaxine 37.5 mg. Patient states that she has been having some marital discord with her , stating that she is no longer in love with him and has requested for a divorce. Patient states that they are in the process of getting a divorce. She states that her current is still very supportive, but she feels guilt with her living him. She states that she became depressed and wanted to feel better by taking more of her medication. Patient states she did not intent to overdose. Patient states she has not been fully compliant with her medication, but notes that when she does, she does feel better emotionally. She states she has been sleeping well at night and she has not been overtly depressed. She admits to smoking marijuana occasionally. She states her parents live in [facility] and she has informed them of her intention to divorce her current and they are supportive. Patient states that she is applying to [employer] as she would like to be a dentist. Patient states she is fairly compliant with medications and missing fllowing up with her therapist. She was also advised to discontinue the use of marijuana. She denies psychotic symptoms. Denies any ongoing abuse. Physical Examination: Vital Signs: Blood pressure 117/75, pulse rate 60, respiratory rate 15, temperature 98.9 degrees Fahrenheit. Mental Status: Patient is a well-nourished female, lying in bed, in scrubs, with one-to-one observation. She is not in any acute psychiatric distress. She is alert and oriented x3. No stereotypic movements observed. Speech is essential normal. No perseveration noted. Memory and concentration are fair. Mood, she described as dysphoric. Affect is more congruent. Thought process is linear mostly, but at times circumstantial. No disorganized thoughts. No flight of ideas. Thought content, no delusional thinking. Denies current suicidal thoughts. Patient admitted for overdosing on venlafaxine. No homicidal ideations. Fund of knowledge is fair. Language is fair. No visual or auditory hallucinations. Diagnosis: Major depressive disorder recurrent severe without psychosis Anxiety disorder unspecified Recommendations: Recommendations at this time will be for patient to be discharged to follow up with a provider for medication management every 2 weeks and also followup with her therapist twice weekly. She has been also advised to discontinue use of illicit substance and recommend she be compliant with her medication. Discussed treatment recommendations with patient's provider and consulting team. Spent 45 minutes interviewing patient as well as reviewing past record. DALTON Voice ID: [id number] Report ID: [id number] DORIS
== END 2019-07-08 11:17 | disposition home or self-care (01) | DRG 918 ==
LOC: SUPCPDRO 21:27 → ER 21:27 → ERHOLD 22:19
PROVIDERS: ADMIT Internal Medicine; ATTEND Internal Medicine
DX: T43.212A Poisoning by selective serotonin and norepinephrine reuptake inhibitors, intentional self-harm, initial encounter (principal); F33.2 Major depressive disorder, recurrent severe without psychotic features; F17.210 Nicotine dependence, cigarettes, uncomplicated; F12.10 Cannabis abuse, uncomplicated; Z91.14 Patient's other noncompliance with medication regimen; Z79.899 Other long term (current) drug therapy; Z88.0 Allergy status to penicillin
CPT/HCPCS: 36415; 80048; 80076; 80307; 80320; 80329; 81003; 81025; 82947; 83735; 85025; 85610; 85730; 93005; 96360; 96361; 99285; J7030